=== PATIENT | female | born 1995 | race Two or more races ===

== ENCOUNTER 2019-05-08 08:53 | Emergency (ER) | payer OTHER ==
[2019-05-08 09:06] VITALS: BP 121/74
[2019-05-08] MEDS ORDERED: LIDOCAINE VISCOUS 2% 15 ML UDC MM STA (09:29)
--- NOTE | 2019-05-08 09:32 | ED Physician Documentation ---
PD HPI CHEST PAIN - Stated complaint Stated Complaint: CHEST PAIN - Chief complaint Chief Complaint: Cardiac - History obtained from History obtained from: Patient - History of Present Illness Timing - onset: Yesterday Timing - onset during: Light activity Timing - details: Still present Quality: Pressure Location: Substernal, Left chest Similar symptoms before: Has not had sx before - Additional information Additional information: The patient is a 24-year-old active [employer] [place] female who presents with pressure in her substernal and left chest. She had the discomfort all day yesterday, and it is better today but not completely resolved. She denies associated cough, fever, shortness of breath, nausea or vomiting. She denies history of similar symptoms in the past. She does not smoke cigarettes. Review of Systems Constitutional: denies: Fever, Fatigue Ears: denies: Tinnitus/ringing Nose: denies: Congestion Throat: denies: Sore throat Cardiac: reports: Chest pain / pressure. denies: Palpitations Respiratory: denies: Dyspnea, Cough GI: denies: Abdominal Pain, Nausea, Vomiting : denies: Dysuria Skin: denies: Rash Musculoskeletal: denies: Back pain, Extremity swelling Neurologic: denies: Focal weakness, Numbness, Headache PD PAST MEDICAL HISTORY - Past Medical History Cardiovascular: None Respiratory: None Neuro: None Endocrine/Autoimmune: None GI: None W[employer]: None : None HEENT: None Psych: None Musculoskeletal: None Derm: None - Past Surgical History Past Surgical History: No - Present Medications Home Medications: Ambulatory Orders Medication Instructions Recorded Confirmed raNITIdine [Zantac] 150 mg PO BID #30 tablet 05/08/19 - Allergies Allergies/Adverse Reactions: Allergies Allergy/AdvReac Type Severity Reaction Status Date / Time No Known Drug Allergies Allergy Verified 05/08/19 09:06 - Social History Does the pt smoke?: No Smoking Status: Former smoker Does the pt drink ETOH?: No Does the pt have substance abuse?: No - Immunizations Immunizations are current?: Yes - POLST Patient has POLST: No PD ED PE NORMAL - Vitals Vital signs reviewed: Yes (normal) - General General: Alert and oriented X 3, Well developed/nourished - HEENT HEENT: Atraumatic, Pharynx benign - Neck Neck: No adenopathy, No JVD - Cardiac Cardiac: RRR, No murmur - Respiratory Respiratory: No respiratory distress, Clear bilaterally, Other (No chest wall tenderness to palpation.) - Abdomen Abdomen: Soft, Other (Mild epigastric tenderness, without rebound.) - Back Back: No CVA TTP - Derm Derm: No rash - Extremities Extremities: No edema, No calf tenderness / cord - Neuro Neuro: Alert and oriented X 3, No motor deficit, Normal speech Results - Vitals Vitals: Vital Signs - 24 hr 05/08/19 09:02 Temperature 36.9 C Heart Rate 65 Respiratory 16 Rate Blood Pressure 121/74 O2 Saturation 100 Oxygen O2 Source Room air - EKG (time done) 09:34 Rate: Rate (enter#) (68) Rhythm: NSR Finley: LAD (borderline) Intervals: Normal [place] QRS: Normal Ischemia: Normal ST segments Computer interpretation: Agree with computer - Rads (name of study) CXR Radiology: Prelim report reviewed, EMP read contemporaneously, See rad report (Normal 2 view chest radiography.) PD MEDICAL DECISION MAKING - ED course Complexity details: reviewed results, re-evaluated patient, considered differential, d/w patient ED course: The patient's presentation is most consistent with gastroesophageal reflux disease. Chest x-ray is normal, and I doubt pulmonary embolus. EKG reveals no acute ischemic abnormality, and I doubt cardiac ischemia. Treatment in the emergency department included administration of GI cocktail which completely relieved her symptoms. She is being discharged with prescription for ranitidine. I discussed with her the diagnosis, symptomatic treatment and outpatient follow-up, as well as potentially worrisome signs or symptoms that should prompt reevaluation in the emergency department. Departure - Departure Disposition: 01 Home, Self Care Clinical Impression: Gastroesophageal reflux disease Qualifiers: Esophagitis presence: esophagitis presence not specified Qualified Code(s): K21.9 - Gastro-esophageal reflux disease without esophagitis Condition: Stable Instructions: ED GERD Follow-Up: HANS SCHILLING DO [Physician No Access] - Prescriptions: raNITIdine [Zantac] 150 mg PO BID #30 tablet Comments: Take ranitidine twice daily as prescribed. You can use liquid antacid, such as Maalox or Mylanta if you develop recurrent symptoms. Minimize coffee, viry, alcohol. Follow-up with your primary physician within 2 weeks. Call to schedule an appointment. Return to the emergency department if you develop increasing pain, shortness of breath, or otherwise worsening symptoms.
--- NOTE | 2019-05-08 10:26 | XRAY Report ---
Reason: chest pain Procedure Date: 05/08/2019 Accession Number: [id number] / [id number] Procedure: XR - Chest 2 View X-Ray CPT Code: 23413 FULL RESULT: EXAM: CHEST RADIOGRAPHY EXAM DATE: 05/08/2019 10:13 AM. CLINICAL HISTORY: Chest pain. COMPARISON: None. TECHNIQUE: 2 views. FINDINGS: Lungs/Pleura: No focal opacities evident. No interstitial abnormality. No pleural effusion. No pneumothorax. Normal volumes. Mediastinum: Heart and mediastinal contours are unremarkable. Other: Minimal left convex upper and right convex lower thoracic scoliosis. IMPRESSION: Normal 2-view chest radiography. [facility]
== END 2019-05-08 11:02 | disposition home or self-care (01) ==
LOC: ED 08:53
DX: K21.9 Gastro-esophageal reflux disease without esophagitis (principal); Z87.891 Personal history of nicotine dependence
CPT/HCPCS: 71046; 93005; 99283; 99284